=== PATIENT | male | born 2000 | race Caucasian/White ===

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

== ENCOUNTER 2023-05-12 10:22 | Emergency (ER) | payer OTHER, SELFPAY ==
[~2023-05-12] VITALS: Ht 177.8 cm; Wt 75.4 kg
[~2023-05-12 10:22] MED LIST: MELA5CAP2 PO; NAPR-837 PO
[2023-05-12 10:24] VITALS: BP 127/84; TEMP 96.7; O2SAT 98
== END 2023-05-12 13:29 | disposition left against medical advice (07) ==
LOC: M ED 10:22
DX: Z53.21 Procedure and treatment not carried out due to patient leaving prior to being seen by health care provider (principal)